=== PATIENT | male | born 1950 | race Caucasian/White ===

== ENCOUNTER 2022-12-24 20:57 | Emergency (ER) | payer MEDICARE, OTHER ==
[~2022-12-24 20:57] MED LIST: Iopamidol 370 76% 100 ML VIAL ONE; Sodium Chloride 0.9% 500 ML BAG ONE
[2022-12-24] MEDS ORDERED: Ipratropium/Albuterol 3 ML NEB ONE (21:27)
[2022-12-24] MEDS ORDERED: methylPREDNISolone Sod Succ/PF 125 MG/2 ML VIAL ONE (21:28)
[2022-12-24] MEDS ORDERED: Aspirin Chewable 81 MG TAB ONE (21:28)
[2022-12-24 21:31] LABS: #Basophils 0.1 thou/uL (0.0-0.2); #Lymphocytes 1.8 thou/uL (1.20-3.40); #Monocytes 1.2 thou/uL (0.11-0.59); #Neutrophils 10.6 thou/uL (1.40-6.50); %Basophils 0.6 % (0.0-1.0); %Eosinophils 0.3 % (0.0-10.0); %Lymphocytes 13.4 % (21.0-51.0); %Monocytes 8.5 % (0.0-10.0); %Neutrophils 77.2 % (42.0-75.0); Hematocrit 37.4 % (42.0-52.0); Hemoglobin 12.5 g/dL (14.0-18.0); Mean Corpuscular HGB CONC 33.2 g/dL (32.0-36.0); Mean Corpuscular Hemoglobin 32.3 pg (27.0-31.0); Platelet Count 233 10x3/uL (130-400); RBC Distribution Width 12.6 % (11.5-14.5); Red Blood Cell (RBC) Count 3.86 mill/uL (4.70-6.10); White Blood Cell (WBC) Count 13.8 10x3/uL (4.8-10.8)
[2022-12-24 21:50] LABS: ALT (SGPT) 50 U/L (8-55); AST (SGOT) 53 U/L (5-34); Albumin 4.2 g/dL (3.4-4.8); Alkaline Phosphatase 54 U/L (40-110); Anion Gap 20 mmol/L (10-20); BUN (Urea Nitrogen) 45 mg/dL (8.4-25.7); Bilirubin, Total 0.4 mg/dL (0.2-1.2); Calc. Creatinine Clearance 0 mL/min (70-130); Carbon Dioxide 20 mmol/L (23-31); Chloride 102 mmol/L (98-107); Estimated GFR 36; Globulin 2.9 g/dL (2.4-3.5); Glucose 193 mg/dL (83-110); Lipase 35 U/L (8-78); Magnesium 1.8 mg/dL (1.6-2.6); Potassium 4.3 mmol/L (3.5-5.1); Protein, Total 7.1 g/dL (5.8-8.1); Sodium 138 mmol/L (136-145)
[2022-12-24 21:51] LABS: Troponin I 1.196 ng/mL (< 0.028)
[2022-12-24] MEDS ORDERED: Heparin 25,000 units/D5W 500 ML ONE (22:51)
[2022-12-24] MEDS ORDERED: Heparin 10,000 UNITS/ 10 ML VIAL ONE (22:57)
[2022-12-24 23:13] LABS: Prothrombin Time 13.5 sec (12.0-14.7)
[2022-12-24 23:14] LABS: PTT 34.7 sec (22.9-36.1)
== END 2022-12-24 23:47 | disposition short-term general hospital (02) ==
LOC: MADERS 20:57
DX: I21.4 Non-ST elevation (NSTEMI) myocardial infarction (principal); I71.40 Abdominal aortic aneurysm, without rupture, unspecified; R57.0 Cardiogenic shock; R94.31 Abnormal electrocardiogram [ECG] [EKG]; R14.0 Abdominal distension (gaseous); I10 Essential (primary) hypertension; E11.9 Type 2 diabetes mellitus without complications; J44.9 Chronic obstructive pulmonary disease, unspecified; Z79.82 Long term (current) use of aspirin; Z79.51 Long term (current) use of inhaled steroids
CPT/HCPCS: 71045; 71275; 74174; 80053; 83690; 83735; 83880; 84484; 85025; 85379; 85610; 85730; 93005; 96361; 96365; 96375; 96376; J1644; J2930; J7030; J7620; Q9967